=== PATIENT | female | born 1995 | race American Indian/Alaskan Native ===

== ENCOUNTER 2018-08-13 14:26 | Emergency (ER) | payer BC, OTHER ==
[2018-08-13 14:27] VITALS: BMI 25.0
[2018-08-13 15:17] VITALS: O2SAT 99
--- NOTE | 2018-08-13 15:56 | C.PDOC ---
History Of Present Illness 23 year old female presents to the ED complaining of abdominal pain that started 2 days ago. Associated symptoms include 2 episodes of diarrhea today and night sweats. Also notes she has a cold with associated coughing and sneezing for a few days. Denies any recent travels, sick contacts, trauma, or recent antibiotic use. Denies any nausea, vomiting, constipation, urinary symptoms, fever, chills. Denies taking any medications for the pain. Time Seen by Provider: 08/13/18 15:55 Chief Complaint (Nursing): Abdominal Pain History Per: Patient History/Exam Limitations: no limitations Onset/Duration Of Symptoms: Days (2) Current Symptoms Are (Timing): Still Present Location Of Pain/Discomfort: Epigastric Radiation Of Pain To:: None Associated Symptoms: Diarrhea. denies: Fever, Chills, Nausea, Vomiting, Constipation, Urinary Symptoms Last Menstral Period: 07/26 Past Medical History Reviewed: Historical Data, Nursing Documentation, Vital Signs Vital Signs: Last Vital Signs Temp 98.5 F 08/13/18 15:14 Pulse 83 08/13/18 15:14 Resp 20 08/13/18 15:14 BP 137/90 08/13/18 15:14 Pulse Ox 99 08/13/18 15:14 - Medical History PMH: No Chronic Diseases Denies: Depression Surgical History: No Surg Hx - [facility] Procedures INJECT/INFUSE NEC (10/23/13) Family History: States: No Known Family Hx - Social History Hx Tobacco Use: No Hx Alcohol Use: Yes Hx Substance Use: No Review Of Systems Constitutional: Positive for: Sweats. Negative for: Fever, Chills Eyes: Negative for: Pain ENT: Negative for: Ear Pain Cardiovascular: Negative for: Chest Pain, Palpitations Respiratory: Negative for: Shortness of Breath Gastrointestinal: Positive for: Abdominal Pain (epigastric), Diarrhea. Negative for: Nausea, Vomiting, Constipation, Melena, Hematochezia, Hematemesis Genitourinary: Negative for: Dysuria, Hematuria, Vaginal Discharge, Vaginal Bleeding Neurological: Negative for: Weakness, Numbness, Headache Psych: Negative for: Anxiety, Depression Physical Exam - Physical Exam Appears: Non-toxic, No Acute Distress Skin: Warm, Dry, No Rash Head: Normacephalic Eye(s): bilateral: Normal Inspection Nose: Normal Oral Mucosa: Moist Neck: Supple Chest: Symmetrical Cardiovascular: Rhythm Regular Respiratory: No Rales, No Rhonchi, No Wheezing Gastrointestinal/Abdominal: Soft, Tenderness (epigastric), No Distention, No Guarding, No Rebound Extremity: Bilateral: Atraumatic, Normal Color And Temperature, Normal ROM Neurological/Psych: Oriented x3, Normal Speech Gait: Steady ED Course And Treatment - Laboratory Results Result Diagrams: 08/13/18 16:00 08/13/18 16:00 O2 Sat by Pulse Oximetry: 99 Medical Decision Making Medical Decision Makin yr old female p/w abdominal pain, viral uri "cold" like symptoms. No chest pain or sob. No dark or bloody stool. LMP normal, no vaginal complaints or rashes or abnl d/c. No fall or trauma. No recent abx. Likely gastro. Orders: - Bloodwork - Maalox 30mL PO - Rapid Flu A/B - POC 1807 labs, imaging unremarkable repeat abd exam unremarkable. non ttp w/ out rebound clear for d/c home w/ return indications and follow up, pt agreeable Disposition - Disposition Referrals: [facility] [Outside] [facility] [Outside] Elijah Aranda MD [Staff Provider] - Disposition: HOME/ ROUTINE Disposition Time: 18:07 Condition: GOOD Additional Instructions: MACK SCOTT, thank you for letting us take care of you today. Your provider was Anam Gomez and you were treated for ABD PAIN/COLD. The emergency medical care you received today was directed at your acute symptoms. If you were prescribed any medication, please fill it and take as directed. It may take several days for your symptoms to resolve. Return to the Emergency Department if your symptoms worsen, do not improve, or if you have any other problems. Please contact your doctor or call one of the physicians/clinics you have been referred to that are listed on the Patient Visit Information form that is included in your discharge packet. Bring any paperwork you were given at discharge with you along with any medications you are taking to your follow up visit. Our treatment cannot replace ongoing medical care by a primary care provider outside of the emergency department. [facility] today. If you had an X-Ray or CT scan: A Radiologist will review the ED reading if any change in treatment is needed we will contact you. If you had a blood, urine, or wound culture: It will take several days for the results, if any change in treatment is needed we will contact you. If you had an STI test: It will take 48 hours for the results. Please call after 1 week if you have not heard back. Prescriptions: Famotidine [Pepcid] 20 mg PO Q12H PRN 4 Days #8 tab PRN Reason: abdominal pain Instructions: Gastritis Forms: [facility] (Iranian), Work Excuse - Clinical Impression Clinical Impression: Gastritis - Scribe Statement The provider has reviewed the documentation as recorded by the Scribe Dominique Gutierrez All medical record entries made by the Justynaibe were at my direction and personally dictated by me. I have reviewed the chart and agree that the record accurately reflects my personal performance of the history, physical exam, medical decision making, and the department course for this patient. I have also personally directed, reviewed, and agree with the discharge instructions and disposition.
[2018-08-13] MEDS ORDERED: Alum-Mag Hydrox-Simethicone Susp (30 mL) PO ONE (16:12)
[2018-08-13 16:16] LABS: SQUAMOUS EPITHIAL 10 /hpf (0-5); URINE BACTERIA RARE (<OCC); URINE BILIRUBIN NEGATIVE (NEGATIVE); URINE BLOOD NEGATIVE (NEGATIVE); URINE CLARITY Clear (Clear); URINE COLOR Yellow (YELLOW); URINE GLUCOSE (UA) NORMAL (Normal); URINE LEUKOCYTE ESTERASE NEG Leu/uL (Negative); URINE PROTEIN NEGATIVE (NEGATIVE); URINE UROBILINOGEN NORMAL mg/dL (0.2-1.0)
[2018-08-13 16:22] LABS: BASO # 0.1 K/uL (0.0-0.2); BASO % 1.3 % (0.0-2.0); EOS # 0.2 K/uL (0.0-0.7); EOS % 5.1 % (0.0-4.0); HEMOGLOBIN 12.4 g/dL (11.0-16.0); LYMPH # 1.3 K/uL (1.0-4.3); LYMPH % 33.1 % (20.0-40.0); MEAN CELL VOLUME 86.8 fL (81.0-99.0); MEAN CORPUSCULAR HEMOGLOBIN 28.9 pg (27.0-31.0); MEAN CORPUSCULAR HGB CONC 33.2 g/dL (33.0-37.0); MEAN PLATELET VOLUME 9.2 fL (7.2-11.7); MONO # 0.3 K/uL (0.0-0.8); MONO % 7.2 % (0.0-10.0); NEUT # 2.2 K/uL (1.8-7.0); NEUT % 53.3 % (50.0-75.0); NRBC % 0.1 % (0.0-2.0); RBC 4.31 Mil/uL (3.80-5.20); RED CELL DISTRIBUTION WIDTH 13.1 % (11.5-14.5)
[2018-08-13 16:36] LABS: ALB/GLOB RATIO 1.4 (1.0-2.1); ALBUMIN 4.4 g/dL (3.5-5.0); ALT/SGPT 28 U/L (9-52); AST/SGOT 24 U/L (14-36); BLOOD UREA NITROGEN 13 mg/dL (7-17); CALCIUM 8.9 mg/dl (8.6-10.4); GFR NON-AFRICAN AMERICAN > 60; LIPASE 124 U/L (23-300)
[2018-08-13] MEDS ORDERED: Alum-Mag Hydrox-Simethicone Susp (30 mL) ONE (16:45)
[2018-08-13 17:53] VITALS: BP 110/74; PULSE 72; RESP 18; TEMP 98.1
== END 2018-08-13 18:20 | disposition home or self-care (01) ==
LOC: C.ER 14:26
DX: K29.70 Gastritis, unspecified, without bleeding (principal)